=== PATIENT | female | born 1960 | race Caucasian/White ===

== ENCOUNTER 2018-07-06 19:31 | Emergency (ER) | payer OTHER ==
[~2018-07-06] VITALS: Ht 167.6 cm; Wt 95.0 kg
[~2018-07-06 19:31] MED LIST: ASPI-556 PO; BACL10TA PO; CHLO120L TP; GABA-533 PO; GLIP10 PO; HYDR-3971 PO; INSLAN SQ; LEVO75 PO; LISI10TA PO; METF-446 PO; MULT-1203 PO; SIMV-261 PO; SITA50 PO; SULF-168 PO
[2018-07-06] MEDS ORDERED: INSLAN SQ (20:11)
[2018-07-06 20:18] LABS: GLUCOSE,POINT OF CARE 359 MG/DL (70-110)
[2018-07-06] MEDS ORDERED: TraMADol HCL 50 MG TABLET PO ONE (23:15)
[2018-07-07 00:18] VITALS: BP 138/68
== END 2018-07-07 00:32 | disposition home or self-care (01) ==
LOC: EMS 19:32
DX: M25.512 Pain in left shoulder (principal); M46.90 Unspecified inflammatory spondylopathy, site unspecified; E11.65 Type 2 diabetes mellitus with hyperglycemia; I10 Essential (primary) hypertension; E03.9 Hypothyroidism, unspecified; Z88.0 Allergy status to penicillin; Z79.84 Long term (current) use of oral hypoglycemic drugs; Z79.899 Other long term (current) drug therapy
CPT/HCPCS: 29105; 29240; 93005

== ENCOUNTER 2018-07-20 20:20 | Emergency (ER) | payer OTHER ==
[~2018-07-20] VITALS: Ht 167.6 cm; Wt 95.0 kg
[~2018-07-20 20:20] MED LIST changes: -CHLO120L TP; -HYDR-3971 PO; -MULT-1203 PO; -SITA50 PO; -SULF-168 PO
[2018-07-20 20:44] LABS: GLUCOSE,POINT OF CARE 345 MG/DL (70-110)
[2018-07-20] MEDS ORDERED: MethylPREDNISolone SOD SUCC 125 MG/2 ML VIAL IM ONE (22:30)
[2018-07-20] MEDS ORDERED: KETOROLAC TROMETHAMINE 60 MG/2 ML VIAL IM ONE (22:30)
[2018-07-20] MEDS ORDERED: HYDROCODONE/ACETAMINOPHEN 5-325 MG TABLET PO ONE (22:30)
[2018-07-20 23:10] VITALS: BP 134/72
== END 2018-07-20 23:33 | disposition home or self-care (01) ==
LOC: EMS 20:22
DX: M75.22 Bicipital tendinitis, left shoulder (principal); E11.9 Type 2 diabetes mellitus without complications; E03.9 Hypothyroidism, unspecified; I10 Essential (primary) hypertension; K21.9 Gastro-esophageal reflux disease without esophagitis; Z88.0 Allergy status to penicillin; Z79.4 Long term (current) use of insulin; Z79.899 Other long term (current) drug therapy
CPT/HCPCS: 82962; 96372; 99283; J1885; J2930